=== PATIENT | male | born 2000 | race Caucasian/White ===

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

== ENCOUNTER 2019-12-17 23:38 | Emergency (ER) | payer BC, OTHER ==
--- NOTE | 2019-12-18 00:10 | XR ---
EXAMINATION TYPE: XR elbow complete LT DATE OF EXAM: 12/18/2019 COMPARISON: NONE HISTORY: Elbow pain. Trauma. TECHNIQUE: 3 views FINDINGS: There is soft tissue swelling around the forearm. I see no fracture nor dislocation. There is no evidence of elbow joint effusion. Joint spaces are normal. IMPRESSION: Soft tissue swelling. No fracture seen.
--- NOTE | 2019-12-18 00:13 | ED ---
Upper Extremity HPI - General Chief Complaint: Extremity Injury, Upper Stated Complaint: L Arm Injury Time Seen by Provider: 12/17/19 23:51 Source: patient Mode of arrival: ambulatory Limitations: no limitations - History of Present Illness Initial Comments: This patient is a 19-year-old man who presents to be evaluated for left elbow pain. The patient states she had been wrestling with a friend of his and then landed on the left elbow which she states felt like it had come out of joint. The patient noted development of swelling, moderate pain. Patient denies weakness or numbness. He states that he is able to flex and extend the elbow. Denies any previous injury or surgery on the elbow. MD Complaint: Injury to:: left, elbow Onset/Timin -: hour(s) Other Injuries: none Handedness: right Improves With: immobilization Worsens With: movement of extremity Context: fall Associated Symptoms: denies other symptoms - Related Data Previous Rx's Medication Instructions Recorded Amoxicillin/Potassium Clav 1 each PO Q12HR #20 tab 08/21/18 [Augmentin 875-125 Tablet] Ibuprofen [Motrin] 600 mg PO Q8HR PRN #20 tab 12/18/19 Allergies Allergy/AdvReac Type Severity Reaction Status Date / Time No Known Allergies Allergy Verified 12/17/19 23:47 Review of Systems ROS Statement: Those systems with pertinent positive or pertinent negative responses have been documented in the HPI. ROS Other: All systems not noted in ROS Statement are negative. Constitutional: Denies: fever, chills Respiratory: Denies: cough, dyspnea Cardiovascular: Denies: chest pain, palpitations Musculoskeletal: Reports: as per HPI, joint swelling, arthralgia Neurological: Denies: headache, weakness, numbness, paresthesias Past Medical History Past Medical History: No Reported History History of Any Multi-Drug Resistant Organisms: None Reported Past Surgical History: No Surgical Hx Reported Past Psychological History: No Psychological Hx Reported Smoking Status: Current every day smoker Past Alcohol Use History: None Reported Past Drug Use History: None Reported General Exam Limitations: no limitations General appearance: alert, in no apparent distress Head exam: Present: atraumatic, normocephalic Eye exam: Present: normal appearance Cardiovascular Exam: Present: other (Left radial and ulnar pulses normal in strength. Capillary refill normal throughout the left upper extremity.) Left Shoulder Exam: Present: normal inspection, full ROM. Absent: tenderness, swelling Upper Arm exam: Present: normal inspection, full ROM. Absent: tenderness, swelling Elbow exam: Present: full ROM, tenderness, swelling. Absent: normal inspection, abrasion, laceration, ecchymosis, deformity, crepitus, dislocation, erythema, effusion Forearm Wrist exam: Present: normal inspection, full ROM. Absent: tenderness, swelling, abrasion, laceration, ecchymosis, deformity, crepitus, dislocation Hand Wrist exam: Present: normal inspection, full ROM. Absent: tenderness, swelling, abrasion, laceration, ecchymosis Neuro motor exam: Present: wrist extension intact, thumb opposition intact Neurosensory exam: Present: radial nerve intact, ulnar nerve intact, median nerve intact Vascular: Present: normal capillary refill, radial pulse (Normal), ulnar pulse (Normal) Neurological exam: Present: alert. Absent: motor sensory deficit Skin exam: Present: warm, dry, intact, normal color. Absent: rash Course Vital Signs 12/17/19 23:44 Temperature 99.0 F Pulse Rate 104 H Respiratory 16 Rate Blood Pressure 135/76 O2 Sat by Pulse 100 Oximetry Disposition Clinical Impression: Elbow sprain Disposition: HOME SELF-CARE Condition: Good Instructions (If sedation given, give patient instructions): Elbow Sprain (ED) Prescriptions: Ibuprofen [Motrin] 600 mg PO Q8HR PRN #20 tab PRN Reason: Pain Is patient prescribed a controlled substance at d/c from ED?: No Referrals: None,Stated [Primary Care Provider] - 1-2 days
[2019-12-18 00:36] VITALS: BP 128/80; PULSE 91; RESP 19; TEMP 98.9
== END 2019-12-18 00:36 | disposition home or self-care (01) ==
LOC: EC 23:38
DX: S53.402A Unspecified sprain of left elbow, initial encounter (principal); F17.200 Nicotine dependence, unspecified, uncomplicated; Y93.72 Activity, wrestling
CPT/HCPCS: 99283

== ENCOUNTER 2021-10-22 19:03 | Emergency (ER) | payer BC ==
[2021-10-22 20:55] VITALS: BP 155/94; PULSE 79; RESP 18; TEMP 98.7
--- NOTE | 2021-10-22 21:46 | ED ---
General Adult HPI - General Chief complaint: Dental/Oral Stated complaint: Abscess Time Seen by Provider: 10/22/21 20:55 Source: patient, RN notes reviewed Mode of arrival: ambulatory Limitations: no limitations - History of Present Illness Initial comments: 21-year-old male presents to the emergency department for evaluation of left- sided facial swelling along the jawline. Patient states he went to [facility] or hospital earlier today and received oral antibiotics for a dental abscess. Patient states he has taken a single dose of this medicine however would like to have the abscess drained. Patient states he has a dentist but has not yet scheduled a follow-up appointment. Patient states he did speak with his mother just prior to this provider entering the room and she informed him that his insurance did not cover a visit at the [facility]. He requested be discharged to follow up at another facility. - Related Data Previous Rx's Medication Instructions Recorded Amoxicillin/Potassium Clav 1 each PO Q12HR #20 tab 08/21/18 [Augmentin 875-125 Tablet] Ibuprofen [Motrin] 600 mg PO Q8HR PRN #20 tab 12/18/19 Allergies Allergy/AdvReac Type Severity Reaction Status Date / Time No Known Allergies Allergy Verified 10/22/21 20:55 Review of Systems ROS Statement: Those systems with pertinent positive or pertinent negative responses have been documented in the HPI. ROS Other: All systems not noted in ROS Statement are negative. Past Medical History Past Medical History: No Reported History History of Any Multi-Drug Resistant Organisms: None Reported Past Surgical History: No Surgical Hx Reported Past Psychological History: No Psychological Hx Reported Smoking Status: Vaper Past Alcohol Use History: Occasional Past Drug Use History: Marijuana General Exam Limitations: no limitations (Well-developed, well-nourished male in no acute distress. Initial temperature 98.7, pulse 79, respirations 18, blood pressure 155/94, pulse ox 96% on room air.) General appearance: alert, in no apparent distress ENT exam: Present: other (Non-erythematous localized area of swelling to the left mandible which is tender to palpation. ) Expanded Mouth exam: Absent: trismus Teeth exam: Present: dental caries Neck exam: Present: normal inspection Respiratory exam: Present: other (Respiratory, cardiovascular, and GI exam were deferred as patient was requesting to leave.) Neurological exam: Present: alert, oriented X3 Psychiatric exam: Present: normal affect, normal mood Skin exam: Present: warm, dry, intact, normal color Course Vital Signs 10/22/21 20:51 Temperature 98.7 F Pulse Rate 79 Respiratory 18 Rate Blood Pressure 155/94 O2 Sat by Pulse 96 Oximetry Medical Decision Making - Medical Decision Making This is a 21-year-old male with a past medical history of dental. He presents to the emergency department for evaluation of left lower facial swelling, onset today. Patient is currently on an oral antibiotic for known dental infection. Presented to the emergency department requesting to have the abscess "lanced," however after speaking with his mother, he did find out that his insurance does not cover care at [facility] therefore requests to leave. Patient was provided with discharge instructions as requested. He is encouraged to continue taking his antibiotic as prescribed and to follow up with his dentist or oral surgery for further evaluation and treatment. He is encouraged to return to the emergency department with any concerns. Attending: Calvin. Disposition Clinical Impression: Pain, dental, Left facial swelling Disposition: HOME SELF-CARE Condition: Stable Instructions (If sedation given, give patient instructions): Dental Abscess (ED) Additional Instructions: Follow up with your dentist, the dental clinic listed here, or the oral surgeon for further evaluation and treatment. Please follow up with the [facility] dental clinic. [facility] [place] [address]. Phone number for new patients or [phone] for existing patients. Continue taking your antibiotic as prescribed. Do not hesitate to return to the emergency department with any new, worsening, or concerning symptoms. Is patient prescribed a controlled substance at d/c from ED?: No Referrals: None,Stated [Primary Care Provider] - 1-2 days Jean Puri DDS [STAFF PHYSICIAN] - 1-2 days Time of Disposition: 21:46
== END 2021-10-22 21:51 | disposition home or self-care (01) ==
LOC: EC 19:03
DX: K08.89 Other specified disorders of teeth and supporting structures (principal); R22.0 Localized swelling, mass and lump, head; F17.290 Nicotine dependence, other tobacco product, uncomplicated; F12.90 Cannabis use, unspecified, uncomplicated
CPT/HCPCS: 99282